=== PATIENT | female | born 1980 ===

== ENCOUNTER 2023-03-02 06:34 | Day surgery (SDC) | payer OTHER | END 2023-03-02 15:05 | disposition home or self-care (01) | LOC: CIR.AMB 06:34 | PROVIDERS: ATTEND Colon & Rectal Surgery | DX: K64.2 Third degree hemorrhoids (principal); K64.4 Residual hemorrhoidal skin tags; K64.8 Other hemorrhoids; K92.2 Gastrointestinal hemorrhage, unspecified; E78.5 Hyperlipidemia, unspecified; I10 Essential (primary) hypertension; Z20.822 Contact with and (suspected) exposure to COVID-19; Z88.6 Allergy status to analgesic agent ==